=== PATIENT | female | born 1985 | race Caucasian/White ===

== ENCOUNTER 2018-09-15 08:15 | Inpatient (IN) ==
[2018-09-15] MEDS ORDERED: OXYTOCIN 30 UNITS/500 ML BAG IV PRN ×2 (09:01→12:47)
[2018-09-15] MEDS: LACTATED RINGER'S 1,000 ML IV PRN ×2 (09:20→10:17)
[2018-09-15] MEDS ORDERED: BUPIVACAINE 0.25% 30 ML VIAL ONE (09:25)
[2018-09-15 09:26] LABS: Hematocrit (blood only) 43.3 % (37-47); Hemoglobin 14.6 g/dL (12.0-16.0); Mean Platelet Volume 10.5 fL (7.4-10.4); Platelet Count 186 K/uL (130-400); RDW Coefficient of Variation 15.5 % (11.5-14.5); RDW Standard Deviation 51.2 fL (36.4-46.3); Red Blood Count 4.76 M/uL (4.2-5.4); White Blood Count 16.39 K/uL (4.8-10.8)
[2018-09-15] MEDS ORDERED: ePHEDrine sulfate 50 MG/ML AMP ONE (09:26)
[2018-09-15] MEDS ORDERED: fentaNYL citrate 100 MCG/2 ML VIAL ONE (09:26)
[2018-09-15] MEDS ORDERED: fentaNYL 2MCG/ML ROPIV 1.25MG/ML 100 ML BAG EPI ONE (09:27)
[2018-09-15 09:29] LABS: Mean Corpuscular Hgb Conc 33.7 g/dL (32-36)
[2018-09-15] MEDS ORDERED: DiphenhydrAMINE HCL 50 MG/ML VIAL IV PRN (09:38)
[2018-09-15] MEDS ORDERED: ePHEDrine sulfate 50 MG/ML AMP IV PRN (09:38)
[2018-09-15] MEDS ORDERED: NALOXONE HCL 1 MG in SODIUM CHLORIDE 0.9% 1000ML 1,000 ML IV PRN (09:38)
[2018-09-15] MEDS ORDERED: ONDANSETRON INJ 2 MG/ML 2 ML VIAL IV PRN (09:38)
[2018-09-15] MEDS ORDERED: NALOXONE HCL 0.4 MG/1 ML VIAL/CARP IV PRN (09:38)
[2018-09-15] MEDS ORDERED: NALBUPHINE HCL INJ 10 MG/ML AMP IV PRN (09:38)
[2018-09-15] MEDS ORDERED: fentaNYL 2MCG/ML ROPIV 1.25MG/ML 100 ML BAG EPI PRN (09:38)
--- NOTE | 2018-09-15 09:45 | Anesthesiology Consultation ---
Date of Service September 15, 2018 Assessment & Plan (1) Encounter for pre-operative examination: Chart Review Chart Review: Patient NOT seen in Pre Admission Testing and Acceptable Risk for Labor Epidural Consults Requested none ASA ASA2 Proposed Anesthesia Anesthesia Type: Labor Epidural and CSE Risk / Benefits Reviewed With: PT / POA / Parent / Guardian, Accepts Plan and Informed Consent Obtained History Height/Weight Height: 5 ft 6 in Weight: 76.204 kg Allergies Allergy/AdvReac Type Severity Reaction Status Date / Time cefuroxime Allergy Hives Verified 09/15/18 08:42 Medications Home Medications Medication Instructions Recorded Confirmed Last Taken vit-iron fum-folic ac 1 tab PO DAILY 09/15/18 09/15/18 09/14/18 08:00 [ Vitamin] NPO Date Last Intake of Fluids: 09/15/18 Time Last Intake of Fluids: 08:30 Date Last Intake of Solids: 09/14/18 Time Last Intake of Solids: 21:00 Past Medical History Medical History Epilepsy last seizure several years ago, not on meds Exercise / Class Metabolic Activity II 4-5 Yardwork/Stairs/Walk up hill Past Surgical History Surgical History History of tonsillectomy and adenoidectomy Past Anesthesia History No Hx of Anesthesia Complications and No Family Hx of Anesthesia Complications Social History Smoking Status: Former smoker Hx Alcohol Use: No Hx Substance Use: No Review of Systems no chest pain or sob Physical Exam Vital Signs Last Vital Signs Temp 36.1 C L 09/15/18 08:24 Pulse 82 09/15/18 09:45 Resp 20 09/15/18 08:24 BP 104/62 09/15/18 09:39 Pulse Ox 99 09/15/18 09:45 ENMT Mouth: no TMJ abnormality Thyromental Distance: > or= 3.5 Finger Breadths Mallampati Class: II Neck normal visual inspection Respiratory normal respiratory effort Auscultation: lungs clear to auscultation bilaterally Cardiovascular Rate/Rhythm: regular rate and regular rhythm Musculoskeletal Spine: normal cervical ROM Neurologic moves all extremities Psychiatric Orientation: alert and oriented x 3 Testing Laboratory Results 09/15/18 09:13
[2018-09-15] MEDS ORDERED: METHYLERGONOVINE MALEATE 0.2 MG/ML AMP ONE (12:41)
[2018-09-15] MEDS ORDERED: DIPHTHERIA/TETANUS/PERTUSSIS 0.5 ML SYR/VIAL IM ONE (12:47)
[2018-09-15] MEDS ORDERED: METHYLERGONOVINE MALEATE 0.2 MG/ML AMP IM ONE (12:47)
[2018-09-15] MEDS ORDERED: BISACODYL 10 MG SUPP PR PRN (12:47)
[2018-09-15] MEDS ORDERED: SUPERCREAM 0.870% 15 GM JAR EXT PRN (12:47)
[2018-09-15] MEDS ORDERED: BENZOCAINE 20% AER SPR 82.5 GM CAN EXT PRN (12:47)
[2018-09-15] MEDS ORDERED: ACETAMINOPHEN W/CODEINE #3 1 TAB PO PRN (12:47)
[2018-09-15] MEDS ORDERED: OXYCODONE/ACETAMINOPHEN 5mg/325mg TAB PO PRN (12:47)
[2018-09-15] MEDS ORDERED: ACETAMINOPHEN 325 MG TAB PO PRN (12:47)
[2018-09-15] MEDS ORDERED: HYDROCORTISONE ACETATE 25 MG SUPP PR PRN (12:47)
--- NOTE | 2018-09-15 13:03 | Delivery Summary ---
DATE OF OPERATION: 09/15/2018 She is a 33-year-old 3, para 3. Blood type is O positive, group B strep negative. Due date 09/16/2018, was admitted in active labor. Soon after admission, she was fluid loaded and given epidural, she had good pain control. She had an unstimulated labor, went to full dilatation. In about 3 pushes, pushed out a live female via direct occiput anterior position over an intact perineum. was suctioned through the mouth and the nose. Shoulders were delivered without difficulty. Cord was clamped, cut by the father. Cord blood was taken. With IV Pitocin running, the placenta was removed intact. Inspection of the perineum revealed a very superficial first degree laceration. This was repaired with a running 3-0 chromic. Following this, vaginal examination revealed no hematoma formation or sponges in the vagina. ESTIMATED BLOOD LOSS: 100 mL. I attest to the content of the Intraoperative Record and any orders documented therein. Any exception s are noted below.
--- NOTE | 2018-09-15 15:08 | Anesthesia Procedure Note ---
Date of Service September 15, 2018 Anesthesia Post Epidural Note Vital Signs Vital Signs: Temp Pulse Resp BP Pulse Ox 36.5 C 90 20 121/64 99 09/15/18 11:35 09/15/18 14:59 09/15/18 14:15 09/15/18 14:59 09/15/18 12:30 Pain Intensity Abdomen: Pain Intensity: 0 Notes Mental Status: alert / awake / arousable and participated in evaluation Nausea / Vomiting: adequately controlled Pain: adequately controlled Airway Patency, RR, SpO2: stable & adequate BP & HR: stable & adequate Hydration State: stable & adequate Neuraxial Anesthesia: was administered and sensory block is resolving Anesthetic Complications: no major complications apparent and Pt Satisfied with anesthetic care Epidural: Removed without complications and With tip intact
[2018-09-15] MEDS: IBUPROFEN 600 MG TAB PO PRN ×2 (17:32→21:34)
[2018-09-15] MEDS: DOCUSATE SODIUM 100 MG CAP PO SCH (21:34)
[2018-09-16] MEDS: IBUPROFEN 600 MG TAB PO PRN ×2 (06:18→15:19)
[2018-09-16 06:40] LABS: Hematocrit (blood only) 38.8 % (37-47); Hemoglobin 12.9 g/dL (12.0-16.0); Mean Corpuscular Hgb Conc 33.2 g/dL (32-36); Mean Corpuscular Volume 91.1 fL (80-100); Mean Platelet Volume 10.4 fL (7.4-10.4); Platelet Count 157 K/uL (130-400); RDW Coefficient of Variation 15.5 % (11.5-14.5); Red Blood Count 4.26 M/uL (4.2-5.4); White Blood Count 15.49 K/uL (4.8-10.8)
[2018-09-16] MEDS ORDERED: PRENATAL VITAMIN 1 TAB PO SCH (08:00)
[2018-09-16] MEDS: DOCUSATE SODIUM 100 MG CAP PO SCH (09:55)
--- NOTE | 2018-09-16 10:08 | Obstetrical Progress Note ---
Date of Service September 16, 2018 Subjective Patient is seen and examined. She feels well, no complaints. Ambulating without dizziness Voiding without difficulty Tolerating regular diet with out N&V Bleeding is minimal No fever/ chills/ CP/ SOB/ N&V/ Leg pain Vital Signs Temp Pulse Resp BP Pulse Ox 09/16/18 04:15 36.4 C L 73 16 100/59 L 97 09/15/18 23:00 36.7 C 72 16 118/67 97 09/16/18 Range/Units 06:27 WBC 15.49 H (4.8-10.8) K/uL RBC 4.26 (4.2-5.4) M/uL Hgb 12.9 (12.0-16.0) g/dL Hct 38.8 (37-47) % MCV 91.1 (80-100) fL MCH 30.3 (25-34) pg MCHC 33.2 (32-36) g/dL RDW Std Deviation 51.0 H (36.4-46.3) fL RDW Coeff of Kimberlyn 15.5 H (11.5-14.5) % Plt Count 157 (130-400) K/uL MPV 10.4 (7.4-10.4) fL PE: General: Alert, orientedx3, NAD Abd: soft, NT, fundus firm, below Umbilicus Perineum intact, Lochia rubra minimal Ext; NT, no edema AP: 33 yo s/p , ppd# 1 VSS Afebrile doing well Continue routine care All questions were answered D/C home tomorrow Results & Data Vital Signs (Past 12 Hours) Vital Signs Temp Pulse Resp BP Pulse Ox 09/16/18 04:15 36.4 C L 73 16 100/59 L 97 09/15/18 23:00 36.7 C 72 16 118/67 97
[2018-09-16 12:24] VITALS: O2SAT 98
[2018-09-16] MEDS ORDERED: MEASLES, MUMPS & RUBELLA VIRUS VIAL SQ ONE (15:03)
[2018-09-16 16:10] VITALS: BP 112/67; PULSE 70; TEMP 97.7
[2018-09-16] MEDS ORDERED: BISACODYL 5 MG TABEC PO SCH (20:00)
== END 2018-09-16 19:25 | disposition home or self-care (01) | DRG 807 ==
LOC: OPB 08:15 → 4S1 08:15 → 4S2 16:44